=== PATIENT | female | born 1990 | race Caucasian/White ===

== ENCOUNTER 2018-04-15 12:48 | Emergency (ER) | payer OTHER ==
[~2018-04-15] VITALS: Ht 167.6 cm; Wt 99.8 kg
[~2018-04-15 12:48] MED LIST: CEPHALEXIN 500500 M3 PO; MOTRIN IB200 M1 PO; NOHOMEMEDICATIONS; NORCO 5-325 TA1 EACH PO; PHENERGAN-CODE120 ML PO; TRAMADOL 50 MG50 MG PO
[2018-04-15 12:52] VITALS: BP 189/104
== END 2018-04-15 13:14 | disposition home or self-care (01) ==
LOC: M.ERS 12:48
DX: S61.235A Puncture wound without foreign body of left ring finger without damage to nail, initial encounter (principal); Z88.5 Allergy status to narcotic agent; W26.9XXA Contact with unspecified sharp object(s), initial encounter; Y93.89 Activity, other specified; Y92.89 Other specified places as the place of occurrence of the external cause; Y99.8 Other external cause status